=== PATIENT | female | born 1995 | race Two or more races ===

== ENCOUNTER → 2022-12-04 | Emergency (ER) | payer MEDICAID, OTHER ==
[~2022-12-04] VITALS: Ht 162.6 cm; Wt 115.0 kg
[~2022-12-04] MED LIST: DICY10CA PO; FAMO20TA10 PO; LIDOCAINE VISCOUS 2% 15ML UD PO ONE; MAALOX PLUS or MAALOX 30 ML PO ONE; MORPHINE SULFATE INJ 2 MG/ml SYRG IM ONE; NITR50CA24 PO; ONDANSETRON ODT 4 MG TAB PO ONE; PHEN-922 PO; ZOFR4T PO
[2022-12-04 20:30] VITALS: BP 127/84
[2022-12-04 21:50] LABS: Basophils % (auto) 0.5 % (0.0-2.0); Eosinophils # (auto) 0.2 10 ^3/uL (0-0.8)
[2022-12-04 21:52] LABS: Basophils # (auto) 0 10 ^3/uL (0-0.2); Hematocrit 35.5 % (36.0-46.0); Hemoglobin 11.7 g/dL (12.2-16.2); Lymphocytes # (auto) 2.9 10 ^3/uL (0.4-5.4); Lymphocytes % (auto) 30.4 % (10.0-50.0); Mean Corpuscular Hemoglobin 25.8 pg (28.0-32.0); Mean Corpuscular Hgb Conc. 32.8 g/dL (32.0-36.0); Mean Corpuscular Volume 78.7 fL (80.0-100.0); Monocytes # (auto) 0.8 10 ^3/uL (0-1.3); Monocytes % (auto) 8.1 % (0.0-12.0); Neutrophils # (auto) 5.7 10 ^3/uL (1.6-8.6); Red Blood Cells 4.51 10^6/uL (4.0-5.20); Red Cell Distribution Width 16.2 % (11.8-14.3); White Blood Cell 9.6 10^3/uL (4.4-10.8)
[2022-12-04 22:15] LABS: Albumin 3.4 g/dL (3.4-5.0); BUN/Creatinine Ratio 27.5 (10.0-20.0); Calcium 8.5 mg/dL (8.5-10.1); Potassium 3.6 mmol/L (3.5-5.1)
[2022-12-04 22:17] LABS: Bilirubin, Total 0.4 mg/dL (0.2-1.0); Total Protein 7.6 g/dL (6.4-8.2)
[2022-12-04 23:58] LABS: Urine Bacteria MOD /hpf (None Seen); Urine Blood Negative /uL (Negative); Urine Mucus FEW (None Seen); Urine Specific Gravity 1.026 (1.001-1.035); Urine WBC 1 /hpf (0 - 5)
== END ==
LOC: ER 20:23
DX: K42.9 Umbilical hernia without obstruction or gangrene (principal); I88.0 Nonspecific mesenteric lymphadenitis; R10.31 Right lower quadrant pain; K29.70 Gastritis, unspecified, without bleeding; N39.0 Urinary tract infection, site not specified
CPT/HCPCS: 36415; 74176; 76856; 80053; 81001; 81025; 83690; 85025